=== PATIENT | male | born 1975 | race Caucasian/White ===

== ENCOUNTER 2017-04-06 15:02 | Outpatient (CLI) | payer OTHER ==
--- NOTE | 2017-04-06 16:12 | DIAGNOSTIC IMAGING REPORT ---
PROCEDURE: CT ABD/PELVIS WITH CONTRAST CLINICAL INDICATION: LLQ PAIN TECHNIQUE: 145 ml of Isovue 300 were injected intravenously and axial images were obtained of the entire abdomen and pelvis with sagittal and coronal reformations. COMPARISON: None. FINDINGS: ABDOMEN: Lung bases are clear. Heart size is normal. Liver, gallbladder, pancreas, spleen, adrenal glands and right kidney are normal. Small left renal cyst. Normal abdominal aorta. Nonspecific bowel gas pattern. PELVIS: Normal appendix. Mild sigmoid diverticulosis but no evidence of inflammatory changes. Normal prostate and bladder. No pelvic mass or free fluid. Mild degenerative changes of the spine. IMPRESSION: 1. Mild sigmoid diverticulosis but no evidence of diverticulitis. 2. Results discussed with Dr. Sarmiento. All CT scans at this facility use dose modulation, iterative reconstruction, and/or weight-based dosing when appropriate to reduce radiation dose to as low as reasonably achievable.
== END 2017-04-06 23:00 | disposition home or self-care (01) ==
LOC: CT SRH 15:02
DX: K57.30 Diverticulosis of large intestine without perforation or abscess without bleeding (principal)